=== PATIENT | male | born 1995 | race Caucasian/White ===

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

== ENCOUNTER 2018-06-26 23:03 | Emergency (ER) | payer OTHER ==
[~2018-06-26] VITALS: Ht 170.2 cm; Wt 96.2 kg
[2018-06-26 23:21] VITALS: Ht 170.2 cm; Wt 96.2 kg
[2018-06-27 00:21] VITALS: BP 106/65
== END 2018-06-27 00:21 | disposition home or self-care (01) ==
LOC: ED 23:03
DX: J11.1 Influenza due to unidentified influenza virus with other respiratory manifestations (principal)
CPT/HCPCS: 87804

== ENCOUNTER 2019-12-09 11:43 | Emergency (ER) | payer OTHER ==
[~2019-12-09] VITALS: Ht 170.2 cm; Wt 101.6 kg
[2019-12-09 11:50] VITALS: Ht 170.2 cm; Wt 101.6 kg
[2019-12-09 13:16] VITALS: BP 128/71
== END 2019-12-09 13:17 | disposition home or self-care (01) ==
LOC: ED 11:43
DX: T36.8X5A Adverse effect of other systemic antibiotics, initial encounter (principal); Y92.89 Other specified places as the place of occurrence of the external cause
CPT/HCPCS: J7512